=== PATIENT | male | born 1970 | race African-American/Black ===

== ENCOUNTER 2020-08-02 11:20 | Inpatient (IN) | payer OTHER ==
[2020-08-02] MEDS ORDERED: Morphine 4 MG/ML VIAL ONE (12:00)
[2020-08-02] MEDS ORDERED: Ondansetron PF 4 MG/2 ML Vial ONE (12:00)
[2020-08-02 12:33] LABS: #Monocytes 0.8 thou/uL (0.11-0.59); #Neutrophils 6.9 thou/uL (1.40-6.50); %Basophils 0.3 % (0.0-1.0); %Eosinophils 0.1 % (0.0-10.0); %Lymphocytes 20.2 % (21.0-51.0); %Monocytes 8.6 % (0.0-10.0); %Neutrophils 70.8 % (42.0-75.0); Hemoglobin 14.9 g/dL (14.0-18.0); Mean Corpuscular HGB CONC 34.3 g/dL (32.0-36.0); Mean Corpuscular Hemoglobin 32.6 pg (27.0-31.0); Mean Corpuscular Volume 95.2 fL (78.0-98.0); Mean Platelet Volume 8.2 fL (7.4-10.4); Platelet Count 144 thou/uL (130-400); RBC Distribution Width 12.2 % (11.5-14.5); Red Blood Cell (RBC) Count 4.56 mill/uL (4.70-6.10); White Blood Cell (WBC) Count 9.8 thou/uL (4.8-10.8)
--- NOTE | 2020-08-02 13:00 | CT ---
CT ABDOMEN WITH CONTRAST CT PELVIS WITH CONTRAST: DATE: 08/02/2020 HISTORY: 50-year-old male with abdominal pain. "Large, very tender periumbilical hernia" At 12:52 PM 08/02/2020, Dr. Montesinso reported the findings that constitute a surgical emergency, to Dr. Alvin Gore by telephone. COMPARISON: None TECHNIQUE: IV injection of iodinated contrast media: administered. Oral contrast media:Not administered FINDINGS: Through a 2.5 cm defect of the ventral abdominal wall at midline, representing diastases between the left and right rectus abdominis muscles just superior to the umbilicus, an approximately 4.5 x 2.5 x 3.5 cm loop of small intestine has herniated into the subcutaneous fat. The hernia sac is approxima tely 7 x 3 x 4.5 cm. There is fat stranding representing edema within the hernia sac, especially around the thickened of herniated fluid-filled bowel loop. There are multiple dilated loops of jejunum with caliber of approximately 3.7 cm, with air-fluid leve ls, in the upper and mid abdominal cavity. Loops of ileum are collapsed. No major pathology identified involving liver, abdominal aorta, bilateral kidneys, adrenals, spleen, urinary bladder. Lung bases are grossly clear. No pleural effusion, pneumoperitoneum, or ascites. Multiple small calculi along right spermatic cord. IMPRESSION: ventral paraumbilical hernia with strangulation and small bowel obstruction.
[2020-08-02 13:03] LABS: ALT (SGPT) 70 U/L (8-55); AST (SGOT) 56 U/L (5-34); Albumin 4.4 g/dL (3.5-5.0); Alkaline Phosphatase 68 U/L (40-110); Anion Gap 17 mmol/L (10-20); BUN (Urea Nitrogen) 8 mg/dL (8.9-20.6); Calc. Creatinine Clearance 0 mL/min (70-130); Calcium 9.5 mg/dL (7.8-10.44); Carbon Dioxide 21 mmol/L (22-29); Chloride 101 mmol/L (98-107); Estimated GFR-MDRD Greater than 90; Globulin 3.2 g/dL (2.4-3.5); Glucose 112 mg/dL (70-105); Lipase 14 U/L (8-78); Potassium 4.5 mmol/L (3.5-5.1); Protein, Total 7.6 g/dL (6.0-8.3); Sodium 134 mmol/L (136-145)
[2020-08-02] MEDS ORDERED: PROPOFOL 200 MG/20 ML VIAL ONE (13:05)
[2020-08-02] MEDS ORDERED: Glycopyrrolate 0.2 MG/ML 5 ML SYRINGE ONE (13:05)
[2020-08-02] MEDS ORDERED: Succinylcholine 200 MG/10 ml SYRINGE FS ONE (13:05)
[2020-08-02] MEDS ORDERED: Lidocaine 1% PF 5 ML VIAL ONE (13:05)
[2020-08-02] MEDS ORDERED: Rocuronium Bromide 10 MG/ML (10ML VIAL) ONE (13:05)
[2020-08-02] MEDS ORDERED: Piperacillin/Tazobactam 4.5 GM VIAL ONE (13:25)
--- NOTE | 2020-08-02 14:35 | HP ---
HISTORY OF PRESENT ILLNESS: This is a 50-year-old man, an inmate of a correctional facility, who was brought to the emergency department today. The patient gives a history of acute onset of periumbilical abdominal pain, which was associated with nonreducible bulge and mass. He rated his pain at maximum intensity of 10/10 associated with multiple episodes of nausea and bilious emesis. The pain has gotten progressively worse. The patient reports having chronic ventral hernia, which initially was reducible, but he was not able to reduce this since yesterday. Last bowel movement was yesterday. He last passed flatus also yesterday. Currently, he rates his pain as 7/10, having received several courses of intravenous analgesia. PAST MEDICAL HISTORY: Significant for peptic ulcerative disease with perforation and other pertinent medical history includes chronic ventral hernia, essential hypertension, and chronic depression. PAST SURGICAL HISTORY: Pertinent for exploratory laparotomy and repair of a perforated peptic ulcer as well as a childhood appendectomy. SOCIAL HISTORY: He is an inmate of a correctional facility [facility]. Denies any cigarette smoking, ethanol, or illicit drug abuse. PREHOSPITALIZATION MEDICATIONS: Include: 1. Lisinopril 10 mg p.o. daily. 2. Effexor 150 mg p.o. daily. ALLERGIES: THE PATIENT DENIES ANY KNOWN DRUG ALLERGIES. REVIEW OF SYSTEMS: Ten-point review of systems essentially unremarkable except as stated in past medical history and chief complaint. PHYSICAL EXAMINATION: GENERAL: This reveals a 50-year-old normally developed man, who is otherwise coherent, interactive, and appears stated age. The patient is alert and oriented x3, appears to be in moderate acute distress secondary to severe abdominal pain. VITAL SIGNS: Include blood pressure 138/86, pulse 80, respiratory rate is 18, temperature 98.9 degrees Fahrenheit, oxygen saturation is 100% on room air. HEENT: Reveals normocephalic and atraumatic. Pupils are equal, round, reactive to light and accommodation. HEART: Reveals regular rate and rhythm. No murmurs or gallops auscultated. LUNGS: Clear to auscultation bilaterally. Breathing, regular and nonlabored. ABDOMEN: Soft and nondistended. He has exquisite tenderness to palpation of the abdomen. There is a nonreducible bulge, which is exquisitely tender to even slight touch. This bulging mass is superolateral to the umbilicus. Liver and spleen are otherwise nonpalpable below costal margin. He has a healed supraumbilical midline incision consistent with prior history of laparotomy for the perforated ulcer. Healed Todd-Rajat incision is also noted consistent with prior history of childhood appendectomy. NEUROLOGIC: Reveals no focal deficits present. LABORATORY FINDINGS: Today include a CBC with 9800 white blood cells, hemoglobin and hematocrit 14.9 and 43.4 respectively, platelet count is 144,000. Metabolic profile; sodium 134, potassium 4.5, chloride is 101, bicarb is 21, BUN is 8, creatinine 0.88, glucose 112, lactic acid 1.0, total bilirubin 1.0, AST and ALT marginally elevated at 56 and 70 respectively. Serum lipase is normal at 14. I have personally reviewed CT scan of the abdomen and pelvis, which is remarkable for 4.5 x 2.5 x 3.5 cm loop of small bowel, which is herniated through 2.5 cm defect and this is contained in a 7.3 x 4.5 cm hernia sac in the subcutaneous position. Multiple loops of jejunum are dilated proximal to this incarcerated hernia. The remainder of the ileum distal to this is decompressed. No pneumatosis intestinalis or pneumoperitoneum is noted. IMPRESSION: 1. Acute incarcerated ventral hernia. 2. Acute small-bowel obstruction secondary to #1. 3. History of essential hypertension. 4. History of chronic depression. PLAN: 1. Exploratory laparotomy and repair of ventral incisional hernia, likely with mesh so long as there is no need for bowel resection. 2. Above findings and recommendations have been discussed with the patient. I have advised him of the risks and benefits of the proposed surgery to include, but not limited to bleeding, infection, injury to bowel or surrounding structures. Additional risks include recurrence of the ventral hernia. 3. The patient indicates understanding of the information I provided him today in the presence of his nurse. 4. I have answered all his questions. The patient is going to consent for this admission and surgical intervention. Job ID: [id number]
[2020-08-02 15:01] LABS: SARS-CoV-2 NAA Rapid Test Not Detected (NotDetected)
[2020-08-02] MEDS ORDERED: Iopamidol-370 76% 500 ML 1 ML ONE (15:13)
[2020-08-02] MEDS ORDERED: Fentanyl 250 MCG/5 ML VIAL ONE (15:18)
[2020-08-02] MEDS ORDERED: Promethazine HCl 25 MG/ML VIAL IM PRN (16:56)
[2020-08-02] MEDS ORDERED: Ondansetron HCl/PF 4 MG/2 ML Vial IVP PRN (16:56)
[2020-08-02] MEDS ORDERED: Promethazine HCl 25 MG/ML VIAL SLOW IVP PRN (16:56)
[2020-08-02] MEDS ORDERED: Meperidine HCl/PF 25 MG/ML VIAL ONE (17:34)
[2020-08-02] MEDS ORDERED: traMADol HCl 50 MG TAB PO PRN (17:37)
[2020-08-02] MEDS ORDERED: Ondansetron ODT 4 MG TAB PO PRN (17:37)
[2020-08-02] MEDS ORDERED: Dextrose 50% Abboject 50 ML SYRINGE SLOW IVP PRN (17:37)
[2020-08-02] MEDS ORDERED: Dextrose 5% in Water 1,000 ML IV PRN (17:37)
[2020-08-02] MEDS ORDERED: Fentanyl 100 MCG/2 ML VIAL ONE ×3 (17:44→18:38)
[2020-08-02] MEDS ORDERED: Sodium Chloride For Inhalation 0.9% 3 ML NEB ONE (19:14)
[2020-08-02] MEDS: Sodium Chloride 0.9% 1,000 ML IV SCH ×2 (19:51→20:27)
[2020-08-02] MEDS: Acetaminophen 500 MG TAB PO SCH (19:51)
[2020-08-02] MEDS: Fentanyl 100 MCG/2 ML VIAL SLOW IVP SCH ×2 (19:51→20:27)
[2020-08-02 20:57] LABS: INR-International Normal Ratio 1.1; PTT 28.7 sec (22.9-36.1); Prothrombin Time 14.9 sec (12.0-14.7)
[2020-08-02] MEDS: Ibuprofen 600 MG TAB PO SCH (21:32)
--- NOTE | 2020-08-02 23:26 | OP ---
DATE OF PROCEDURE: 08/02/2020 PREOPERATIVE DIAGNOSES: 1. Acute incarcerated ventral hernia. 2. Acute small-bowel obstruction secondary to #1. OPERATIONS PERFORMED: Exploratory laparotomy and repair of ventral incisional hernia. ANESTHESIA: General endotracheal. ESTIMATED BLOOD LOSS: 20 mL. FLUIDS GIVEN: 1500 mL crystalloids. COUNTS: Sponge and instrument counts were verified as correct x2. COMPLICATIONS: None apparent at the time of operation. INDICATIONS FOR OPERATION: This is a 50-year-old man who presented with acute onset of severe abdominal pain associated with nonreducible periumbilical bulge. Clinical radiographic examination was consistent with acute incarcerated ventral hernia, for which the patient was brought to the operating room for laparotomy. Findings are consistent with a 7 x 6 cm ventral incisional hernia with incarcerated small bowel. The bowel upon release was viable. DESCRIPTION OF PROCEDURE: Informed consent was obtained from the patient, was brought to the operating room and placed in supine position. Following general anesthesia, a Kumar catheter was inserted and placed to bedside drain. The abdomen was sterilely prepped and draped in usual fashion. A midline incision was made using 10 scalpel. Incision was carried through subcutaneous tissues using cautery. Care was taken to avoid injuries to underlying visceral contents above the fascia, but in a subcutaneous position. The hernia sac was encountered and dissected circumferentially down to [facility] fascia. The [facility] ge[facility] fascia was opened inferior to this hernia using cautery. Peritoneum was exposed, grasped x2 with hemostats. Peritoneal cavity was sharply entered using Metzenbaum scissors. I then was able to reduce the hernia contents from within the peritoneal cavity. The incarcerated small bowel was inspected and was viable. Necrotic omental fat was divided between clamps and ligated with 2-0 silk. The hernia sac was circumferentially excised off down to viable [facility] george fascia. This was passed off the operative field for formal transmission to Pathology. Finding no other pathology, small bowel returned to normal anatomic location. Omentum was drawn over the viscera. Fascia was then approximated in the midline using a running stitch of #1 single stranded PDS. Subcutaneous tissues irrigated with saline and hemostasis using cautery. Deep subcutaneous tissues were approximated using interrupted sutures of 3-0 Vicryl. The skin incision was then closed using a running stitch of 3-0 Monocryl suture in subcuticular fashion. Dermabond was applied over incisional closure. The patient tolerated the operation without any apparent complication and was returned to recovery room in satisfactory condition. Job ID: [id number]
[2020-08-03] MEDS: Acetaminophen 500 MG TAB PO SCH ×4 (00:02→18:14)
[2020-08-03 01:11] VITALS: BMI 28.4
[2020-08-03] MEDS: Sodium Chloride 0.9% 1,000 ML IV SCH ×3 (02:56→18:14)
[2020-08-03] MEDS: Ibuprofen 600 MG TAB PO SCH ×3 (05:51→22:11)
[2020-08-03 07:04] LABS: #Lymphocytes 1.5 thou/uL (1.20-3.40); #Neutrophils 6.5 thou/uL (1.40-6.50); %Basophils 0.2 % (0.0-1.0); %Eosinophils 0.1 % (0.0-10.0); %Lymphocytes 16.6 % (21.0-51.0); Hemoglobin 13.4 g/dL (14.0-18.0); Mean Corpuscular Hemoglobin 32.7 pg (27.0-31.0); Mean Corpuscular Volume 96.1 fL (78.0-98.0); Mean Platelet Volume 9.2 fL (7.4-10.4); Platelet Count 103 thou/uL (130-400); Platelet Morphology Comment Appears Decreased; RBC Distribution Width 12.1 % (11.5-14.5)
[2020-08-03 07:07] LABS: Phosphorus 2.4 mg/dL (2.3-4.7)
[2020-08-03 07:10] LABS: Anion Gap 14 mmol/L (10-20); BUN (Urea Nitrogen) 9 mg/dL (8.9-20.6); Calc. Creatinine Clearance 135 mL/min (70-130); Calcium 8.4 mg/dL (7.8-10.44); Carbon Dioxide 24 mmol/L (22-29); Chloride 103 mmol/L (98-107); Estimated GFR-MDRD Greater than 90; Glucose 108 mg/dL (70-105); Magnesium 1.5 mg/dL (1.6-2.6); Potassium 4.1 mmol/L (3.5-5.1); Sodium 137 mmol/L (136-145)
[2020-08-03] MEDS ORDERED: Magnesium Sulfate 4 GM in Sodium Chloride 0.9% 250 ML 250 ML IVPB SCH (09:00)
[2020-08-03] MEDS ORDERED: FLU VACC QS2020-21(6MOS UP)/PF 60 MCG/0.5 ML SYRINGE IM ONE (09:00)
[2020-08-03] MEDS: Lisinopril 10 MG TAB PO SCH (11:05)
[2020-08-03] MEDS: Venlafaxine HCl XR 150 MG CAP PO SCH (22:11)
[2020-08-03] MEDS: traMADol HCl 50 MG TAB PO PRN (22:12)
[2020-08-04] MEDS: Acetaminophen 500 MG TAB PO SCH ×4 (00:19→20:26)
[2020-08-04] MEDS: Sodium Chloride 0.9% 1,000 ML IV SCH ×3 (01:21→20:30)
[2020-08-04] MEDS ORDERED: Famotidine 40 MG/5 ML Oral Suspension PO SCH (03:30)
--- NOTE | 2020-08-04 05:32 | PRG ---
DATE OF SERVICE: 08/03/2020 SUBJECTIVE: The patient was seen this evening during rounds. He was lying in bed, resting comfortably and asleep with no signs of acute distress. Nursing reported no acute events. OBJECTIVE: VITAL SIGNS: Temperature 99.0, pulse 77, respirations 19, oxygen 94% on room air, blood pressure 146/89. GENERAL: Well-appearing middle-aged male, lying in bed with no signs of acute distress, resting comfortably and asleep with no signs of acute distress. PULMONARY: Equal chest rise and fall. No signs of acute respiratory distress. ASSESSMENT: 1. Postoperative day #1, status post exploratory laparotomy repair of ventral hernia. 2. History of hypertension, peptic ulcer disease, and depression. PLAN: 1. Continue current diet and pain regimen. 2. Continue physical and occupational therapy. 3. Continue IV fluids. 4. We will re-evaluate for return of bowel function tomorrow and restart diet as indicated at that time. Job ID: [id number]
[2020-08-04 05:56] LABS: #Lymphocytes 1.1 thou/uL (1.20-3.40); #Monocytes 0.8 thou/uL (0.11-0.59); #Neutrophils 6.8 thou/uL (1.40-6.50); %Basophils 0.1 % (0.0-1.0); %Eosinophils 0.5 % (0.0-10.0); %Lymphocytes 12.5 % (21.0-51.0); %Monocytes 9.1 % (0.0-10.0); %Neutrophils 77.9 % (42.0-75.0); Hemoglobin 13.7 g/dL (14.0-18.0); Mean Corpuscular Hemoglobin 31.9 pg (27.0-31.0); Mean Corpuscular Volume 96.5 fL (78.0-98.0); Mean Platelet Volume 8.1 fL (7.4-10.4); Platelet Count 137 thou/uL (130-400); RBC Distribution Width 12.1 % (11.5-14.5); Red Blood Cell (RBC) Count 4.29 mill/uL (4.70-6.10); White Blood Cell (WBC) Count 8.7 thou/uL (4.8-10.8)
[2020-08-04] MEDS: Ondansetron PF 4 MG/2 ML Vial IVP PRN (06:09)
[2020-08-04] MEDS: Ibuprofen 600 MG TAB PO SCH ×3 (06:10→20:28)
[2020-08-04 06:11] LABS: Anion Gap 12 mmol/L (10-20); BUN (Urea Nitrogen) 10 mg/dL (8.9-20.6); Calc. Creatinine Clearance 143 mL/min (70-130); Calcium 8.7 mg/dL (7.8-10.44); Carbon Dioxide 24 mmol/L (22-29); Chloride 103 mmol/L (98-107); Estimated GFR-MDRD Greater than 90; Glucose 101 mg/dL (70-105); Magnesium 2.2 mg/dL (1.6-2.6); Phosphorus 2.4 mg/dL (2.3-4.7); Potassium 4.2 mmol/L (3.5-5.1); Sodium 135 mmol/L (136-145)
[2020-08-04] MEDS: Lisinopril 10 MG TAB PO SCH (09:09)
[2020-08-04] MEDS: Enoxaparin Sodium 40 MG/0.4 ML SYRINGE SC SCH (09:09)
[2020-08-04] MEDS: Senokot 8.6 MG TAB PO SCH ×2 (09:10→20:27)
[2020-08-04] MEDS: Famotidine 20 MG TAB PO SCH ×2 (09:11→20:26)
[2020-08-04] MEDS: Polyethylene Glycol 3350 17 GM Packet PO SCH (11:49)
[2020-08-04] MEDS ORDERED: Chloraseptic Spray 180 ml Bottle PO SCH (13:15)
[2020-08-04] MEDS ORDERED: Benzocaine 20% Spray 60 ML CAN PO SCH (13:15)
--- NOTE | 2020-08-04 14:30 | RAD ---
EXAM: Abdomen one view: HISTORY: NG tube placement position evaluation COMPARISON: None FINDINGS: NG tube extends well in the stomach. Some dilated large and small bowel, probably ileus No free intraperitoneal air or extraluminal gas. No overt calculus. IMPRESSION: NG tube in satisfactory location. Some residual large and small bowel dilatation.
[2020-08-04] MEDS: Venlafaxine HCl XR 150 MG CAP PO SCH ×2 (20:30→20:33)
[2020-08-05] MEDS: Acetaminophen 500 MG TAB PO SCH ×6 (00:32→23:34)
--- NOTE | 2020-08-05 04:57 | PRG ---
DATE OF SERVICE: 08/04/2020 SUBJECTIVE: The patient was seen this evening during rounds. He was awake and alert, sitting up in bed with no signs of acute distress. NG tube is in place with dark output. The patient reports abdominal pain has improved. States he has not been ambulating in the hallway, but is amenable this morning. Nursing reported that the patient was refusing medications earlier. OBJECTIVE: VITAL SIGNS: Temperature 98.4, pulse 92, respirations 16, oxygen saturation 94% on room air, and blood pressure 161/96. GENERAL: Well-appearing, middle-aged male, sitting up in bed with no signs of acute distress. PULMONARY: Equal chest rise and fall. No signs of acute respiratory distress. ABDOMEN: Soft, mildly tender to palpation, and mildly distended. ASSESSMENT: 1. Postop day 2, status post exploratory laparotomy repair of ventral incisional hernia. 2. Small bowel obstruction. 3. Ventral hernia, incarcerated. 4. Ileus, postop. 5. History of hypertension, peptic ulcer disease, and depression. PLAN: Continue current n.p.o. status and pain regimen. Continue normal saline at 120 an hour. The patient to be walking in the hallways as much as possible. NG tube to suction. Monitor for return of bowel function. Job ID: [id number]
[2020-08-05] MEDS: Ibuprofen 600 MG TAB PO SCH ×3 (05:06→21:09)
[2020-08-05 05:34] LABS: #Eosinphils 0.1 thou/uL (0.0-0.7); #Lymphocytes 1.8 thou/uL (1.20-3.40); #Neutrophils 5.9 thou/uL (1.40-6.50); %Basophils 0.5 % (0.0-1.0); %Eosinophils 0.7 % (0.0-10.0); %Lymphocytes 20.3 % (21.0-51.0); %Monocytes 11.5 % (0.0-10.0); Hemoglobin 11.5 g/dL (14.0-18.0); Mean Corpuscular HGB CONC 33.4 g/dL (32.0-36.0); Mean Corpuscular Hemoglobin 31.7 pg (27.0-31.0); Mean Platelet Volume 7.8 fL (7.4-10.4); Platelet Count 129 thou/uL (130-400); RBC Distribution Width 11.9 % (11.5-14.5); Red Blood Cell (RBC) Count 3.62 mill/uL (4.70-6.10); White Blood Cell (WBC) Count 8.9 thou/uL (4.8-10.8)
[2020-08-05 06:10] LABS: Anion Gap 11 mmol/L (10-20); BUN (Urea Nitrogen) 11 mg/dL (8.9-20.6); Calc. Creatinine Clearance 155 mL/min (70-130); Calcium 8.3 mg/dL (7.8-10.44); Carbon Dioxide 24 mmol/L (22-29); Chloride 106 mmol/L (98-107); Estimated GFR-MDRD Greater than 90; Glucose 101 mg/dL (70-105); Magnesium 1.9 mg/dL (1.6-2.6); Phosphorus 1.4 mg/dL (2.3-4.7); Potassium 3.8 mmol/L (3.5-5.1); Sodium 137 mmol/L (136-145)
[2020-08-05] MEDS ORDERED: Magnesium 2 GM/50 ML 2 GM in Premix Bag 1 BAG IVPB SCH (06:15)
[2020-08-05] MEDS ORDERED: Sodium Phosphate 30 MMOL in Sodium Chloride 0.9% 250 ML 250 ML IVPB SCH (06:15)
[2020-08-05] MEDS: Sodium Chloride 0.9% 1,000 ML IV SCH ×3 (06:57→23:40)
[2020-08-05] MEDS ORDERED: Potassium Phosphate 30 MMOL in Sodium Chloride 0.9% 250 ML 250 ML IVPB SCH (09:00)
[2020-08-05] MEDS: Senokot 8.6 MG TAB PO SCH ×2 (09:41→21:09)
[2020-08-05] MEDS: Famotidine 20 MG TAB PO SCH ×2 (09:41→21:09)
[2020-08-05] MEDS: Polyethylene Glycol 3350 17 GM Packet PO SCH (09:41)
[2020-08-05] MEDS: Cyclobenzaprine 10 MG TAB PO PRN ×2 (09:41→17:27)
[2020-08-05] MEDS: traMADol HCl 50 MG TAB PO PRN (09:42)
[2020-08-05] MEDS: Enoxaparin Sodium 40 MG/0.4 ML SYRINGE SC SCH (09:45)
[2020-08-05] MEDS: Lisinopril 10 MG TAB PO SCH (09:53)
--- NOTE | 2020-08-05 14:27 | PRG ---
DATE OF SERVICE: 08/05/2020 SUBJECTIVE: Mr. Pittman is a 50-year-old male, who is postop day 3 following repair of a ventral incisional hernia. The patient was doing well during morning rounds. He just finished working with PT and had walked up and down the halls. He denies any bowel movement or passing gas, but says his pain is well controlled. OBJECTIVE: VITAL SIGNS: Temperature 98.4, pulse 83, respirations 20, O2 saturation 96 on room air, blood pressure 146/89. GENERAL: Well-appearing middle-aged male, lying in bed. No signs of distress. HEENT: Unremarkable. RESPIRATIONS: Equal chest rise and fall. No signs of acute respiratory distress. CARDIOLOGY: Regular rate and rhythm. ABDOMEN: Soft, mildly tender. Mildly distended. MUSCULOSKELETAL: Moving all extremities well. ASSESSMENT: 1. Postop day 3, status post exploratory laparotomy, repair of ventral incisional hernia. 2. Small bowel obstruction. 3. Ventral hernia, incarcerated. 4. Ileus postop. 5. History of hypertension, peptic ulcer disease, and depression. PLAN: 1. Continue current n.p.o. status and pain regimen. 2. Continue normal saline at 120 an hour. 3. Replace electrolytes. 4. Encourage patient to ambulate in the hallways as much as possible. 5. May consider removing NG tube tomorrow if patient regains bowel function. Dr. Sanchez saw and evaluated this patient during morning rounds. Job ID: [id number]
[2020-08-05] MEDS: Venlafaxine HCl XR 150 MG CAP PO SCH (21:08)
--- NOTE | 2020-08-06 01:59 | PRG ---
DATE OF SERVICE: 08/05/2020 SUBJECTIVE: The patient was seen this evening during rounds. He was sitting up in bed. NG tube in place. He reported his pain is well controlled. He states he only walked in the hallway once today. He has not had return of bowel function. No gas or bowel movement. OBJECTIVE: VITAL SIGNS: Temperature 98.4, pulse 85, respirations 16, oxygen saturation is 97% on room air, blood pressure 152/97. GENERAL: Well-appearing middle-aged male, sitting up in bed with no signs of acute distress. PULMONARY: Equal chest rise and fall. No signs of acute respiratory distress. ABDOMEN: Soft, mildly distended to palpation and nontender. ASSESSMENT: 1. Postop day 3 status post ex lap repair of ventral hernia due to incarcerated ventral hernia and small bowel obstruction. 2. History of hypertension, peptic ulcer and depression. PLAN: Continue current n.p.o. with normal saline. Continue NG tube to suction. Continue encouraging ambulating and watching for return of bowel function. Job ID: [id number]
[2020-08-06] MEDS: Acetaminophen 500 MG TAB PO SCH ×4 (05:10→23:12)
[2020-08-06] MEDS: Ibuprofen 600 MG TAB PO SCH ×3 (05:10→21:14)
[2020-08-06] MEDS: Sodium Chloride 0.9% 1,000 ML IV SCH ×3 (05:13→22:28)
[2020-08-06 05:53] LABS: #Eosinphils 0.1 thou/uL (0.0-0.7); #Lymphocytes 1.8 thou/uL (1.20-3.40); #Monocytes 1.2 thou/uL (0.11-0.59); #Neutrophils 6.8 thou/uL (1.40-6.50); %Basophils 0.5 % (0.0-1.0); %Eosinophils 1.4 % (0.0-10.0); %Lymphocytes 17.8 % (21.0-51.0); %Monocytes 11.6 % (0.0-10.0); %Neutrophils 68.7 % (42.0-75.0); Hemoglobin 11.4 g/dL (14.0-18.0); Mean Corpuscular HGB CONC 34.2 g/dL (32.0-36.0); Mean Corpuscular Volume 93.7 fL (78.0-98.0); Mean Platelet Volume 7.8 fL (7.4-10.4); Platelet Count 136 thou/uL (130-400); RBC Distribution Width 11.6 % (11.5-14.5); Red Blood Cell (RBC) Count 3.55 mill/uL (4.70-6.10); White Blood Cell (WBC) Count 9.9 thou/uL (4.8-10.8)
[2020-08-06 06:45] LABS: Anion Gap 14 mmol/L (10-20); BUN (Urea Nitrogen) 12 mg/dL (8.9-20.6); Calc. Creatinine Clearance 162 mL/min (70-130); Calcium 8.4 mg/dL (7.8-10.44); Carbon Dioxide 23 mmol/L (22-29); Chloride 106 mmol/L (98-107); Estimated GFR-MDRD Greater than 90; Glucose 80 mg/dL (70-105); Phosphorus 2.9 mg/dL (2.3-4.7); Potassium 3.9 mmol/L (3.5-5.1); Sodium 139 mmol/L (136-145)
[2020-08-06] MEDS: Enoxaparin Sodium 40 MG/0.4 ML SYRINGE SC SCH (09:26)
[2020-08-06] MEDS: Famotidine 20 MG TAB PO SCH ×2 (09:27→21:14)
[2020-08-06] MEDS: Senokot 8.6 MG TAB PO SCH ×2 (09:27→21:13)
[2020-08-06] MEDS: Lisinopril 10 MG TAB PO SCH (09:27)
[2020-08-06] MEDS: Polyethylene Glycol 3350 17 GM Packet PO SCH (09:31)
--- NOTE | 2020-08-06 14:47 | PRG ---
DATE OF SERVICE: 08/06/2020 SUBJECTIVE: Mr. Pittman is a 50-year-old male, who is postop day 4 following repair of ventral incisional hernia. The patient was doing well on morning rounds and resting comfortably in bed. He had just finished working with PT. The patient reports he has passed gas, but has not had a bowel movement. He says his pain is well controlled. OBJECTIVE: VITAL SIGNS: Temperature 98.4, pulse 89, respirations 14, O2 saturation 95% on room air, and blood pressure 155/96. GENERAL: Well-appearing middle-age man, lying in bed. No signs of distress. HEENT: Unremarkable. RESPIRATIONS: Equal chest rise and fall. No signs of respiratory distress. CARDIOLOGY: Regular rate and rhythm. ABDOMEN: Soft. Mildly tender. Nondistended. MUSCULOSKELETAL: Moving all extremities well. ASSESSMENT: 1. Postop day 4 status post exploratory laparotomy, repair of ventral incisional hernia. 2. Small-bowel obstruction. 3. Ventral hernia, incarcerated. 4. Ileus, postop, improving. 5. History of hypertension, peptic ulcer disease, and depression. PLAN: 1. NG tube was removed by Dr. Sanchez during morning rounds. 2. Advance the patient to clear liquid diet. 3. Replace electrolytes. 4. Continue working with PT and OT. Encourage the patient to ambulate often. Continue supportive care. 5. The patient is likely to be ready for discharge tomorrow. Dr. Sanchez saw and examined the patient on morning rounds. Job ID: [id number] MTDD
[2020-08-06] MEDS: Venlafaxine HCl XR 150 MG CAP PO SCH (21:14)
[2020-08-06] MEDS: traMADol HCl 50 MG TAB PO PRN (21:19)
[2020-08-06] MEDS: Ondansetron PF 4 MG/2 ML Vial IVP PRN (23:19)
--- NOTE | 2020-08-07 00:57 | PRG ---
DATE OF SERVICE: SUBJECTIVE: This is a 50-year-old gentleman, status post surgical intervention on an incarcerated ventral hernia. Patient had hospital stay complicated by postop ileus. Patient did report flatus earlier today and was started on a clear liquid diet. Upon my evaluation this evening, the patient does report abdominal pain. He does report continued flatus. Denies nausea or vomiting. Nursing at bedside vocalized no concerns. Chart has been reviewed. Vital signs are stable from previous. Physical exam is grossly unchanged from previous documentation. Continue care as ordered. We will closely monitor for nausea, vomiting, or worsening abdominal pain or distention. Job ID: [id number]
[2020-08-07] MEDS: Cyclobenzaprine 10 MG TAB PO PRN ×2 (03:29→18:07)
[2020-08-07] MEDS: traMADol HCl 50 MG TAB PO PRN ×3 (03:29→18:08)
[2020-08-07] MEDS: Sodium Chloride 0.9% 1,000 ML IV SCH ×3 (05:17→23:54)
[2020-08-07] MEDS: Acetaminophen 500 MG TAB PO SCH ×4 (05:24→23:53)
[2020-08-07] MEDS: Ibuprofen 600 MG TAB PO SCH ×3 (05:25→22:18)
[2020-08-07] MEDS: Famotidine 20 MG TAB PO SCH ×2 (09:25→20:28)
[2020-08-07] MEDS: Lisinopril 10 MG TAB PO SCH (09:25)
[2020-08-07] MEDS: Enoxaparin Sodium 40 MG/0.4 ML SYRINGE SC SCH (09:25)
[2020-08-07] MEDS: Polyethylene Glycol 3350 17 GM Packet PO SCH (09:26)
[2020-08-07] MEDS: Senokot 8.6 MG TAB PO SCH ×2 (09:36→20:28)
--- NOTE | 2020-08-07 13:45 | RAD ---
SUPINE ABDOMEN: 08/07/20 HISTORY: Postop ileus. COMPARISON: 08/04/20. Prominent gaseous dilatation of the colon. There is scattered small bowel gas; however, the small bow el distention is less pronounced than on the prior study. No mass effect. IMPRESSION: Gaseous distention of the colon. Gas filled loops of small bowel again noted but less pronounced than on the prior exam. POS: AH
--- NOTE | 2020-08-07 14:29 | PRG ---
DATE OF SERVICE: 08/07/2020 SUBJECTIVE: Mr. Pittman is a 50-year-old inmate of a correctional facility, who is postoperative day #5, status post exploratory laparotomy, repair of incarcerated ventral incisional hernia. The patient is awake and alert today. He reports adequate pain control. He is tolerating clear liquid diet. Urinary output is adequate for this patient's age and weight. He is not having any bowel movement, but admits to passing flatus. OBJECTIVE: VITAL SIGNS: Currently include blood pressure 159/95, pulse is 70, respiratory rate is 16, temperature 97.5 degrees Fahrenheit, and oxygen saturation 96% on room air. HEENT: Reveals normocephalic and atraumatic. Pupils are equal, round, reactive to light and accommodation. HEART: Reveals regular rate and rhythm. No murmurs or gallops auscultated. LUNGS: Clear to auscultation bilaterally. Breathing, regular and nonlabored. ABDOMEN: Soft and distended with gas. Incision is intact, clean, and dry. He has no peritoneal signs on examination. DIAGNOSTIC STUDIES: Abdominal x-ray today reveals distended colon, not as distended small-bowel loops. IMPRESSION: 1. Postop day #5, status post exploratory laparotomy and repair of incarcerated ventral incisional hernia. 2. Adynamic ileus. PLAN: 1. Increase activity. 2. Advance diet upon return of bowel function. Above findings and plan discussed with the patient who indicates understanding of information provided. I have answered his questions. Job ID: [id number]
[2020-08-07] MEDS: Venlafaxine HCl XR 150 MG CAP PO SCH (20:29)
[2020-08-08] MEDS: Ibuprofen 600 MG TAB PO SCH ×3 (05:15→22:20)
[2020-08-08] MEDS: Acetaminophen 500 MG TAB PO SCH ×4 (05:15→23:29)
[2020-08-08] MEDS: Sodium Chloride 0.9% 1,000 ML IV SCH ×3 (07:38→23:24)
[2020-08-08] MEDS: Enoxaparin Sodium 40 MG/0.4 ML SYRINGE SC SCH (10:35)
[2020-08-08] MEDS: Famotidine 20 MG TAB PO SCH ×2 (10:35→20:25)
[2020-08-08] MEDS: Polyethylene Glycol 3350 17 GM Packet PO SCH (10:36)
[2020-08-08] MEDS: Senokot 8.6 MG TAB PO SCH ×2 (10:36→20:25)
[2020-08-08] MEDS: Lisinopril 20 MG TAB PO SCH (10:36)
--- NOTE | 2020-08-08 19:44 | PRG ---
DATE OF SERVICE: 08/08/2020 SUBJECTIVE: The patient is currently on the surgical floor. He is postoperative day 6, status post exploratory laparotomy and repair of incarcerated ventral incisional hernia. The patient has developed postoperative ileus and today was started on neostigmine. He fortunately has not had any vomiting. He is continued to ambulate, and he states that his pain is controlled. OBJECTIVE: VITAL SIGNS: Temperature is 98.6, heart rate 81, respirations 18, oxygen saturation 97% on room air, blood pressure 152/85. GENERAL: The patient is resting comfortably in bed. He is awake, alert, conversant, and appropriate. Brilliant Coma Scale is 15. HEENT: Unremarkable. LUNGS: Clear to auscultation bilaterally. HEART: Regular rate and rhythm. ABDOMEN: Soft and nondistended. His incision is clean, dry, and intact. He has no peritoneal signs on exam. He does have tympanitic sounds to percussion. EXTREMITIES: Neurovascularly intact. LABORATORY DATA: There are no labs or radiographs to review this morning. ASSESSMENT: 1. Status post exploratory laparotomy and repair of incarcerated ventral incisional hernia, postoperative day 6. 2. Adynamic ileus. PLAN: Plan will be to encourage out of bed, ambulation. Again, we will start neostigmine subcutaneous until return of bowel function. The patient was examined this morning with Dr. Sanchez. Job ID: [id number]
[2020-08-08] MEDS: Venlafaxine HCl XR 150 MG CAP PO SCH (20:25)
[2020-08-09] MEDS: Acetaminophen 500 MG TAB PO SCH ×3 (04:57→17:34)
[2020-08-09] MEDS: Ibuprofen 600 MG TAB PO SCH ×3 (05:59→20:40)
[2020-08-09] MEDS: Sodium Chloride 0.9% 1,000 ML IV SCH ×2 (07:52→16:22)
[2020-08-09] MEDS ORDERED: Magnesium Citrate 300 ML BOT PO SCH (08:00)
[2020-08-09] MEDS: Famotidine 20 MG TAB PO SCH ×2 (09:12→20:24)
[2020-08-09] MEDS: Senokot 8.6 MG TAB PO SCH ×2 (09:12→20:24)
[2020-08-09] MEDS: Polyethylene Glycol 3350 17 GM Packet PO SCH (09:12)
[2020-08-09] MEDS: Lisinopril 20 MG TAB PO SCH (09:12)
[2020-08-09] MEDS: Enoxaparin Sodium 40 MG/0.4 ML SYRINGE SC SCH (09:12)
--- NOTE | 2020-08-09 19:26 | PRG ---
DATE OF SERVICE: SUBJECTIVE: Patient remains on the surgical floor. He is postop day 7 status post exploratory laparotomy and repair of incarcerated ventral incisional hernia. Patient is also undergoing treatment for postop ileus. He was treated for the previous 24 hours with neostigmine which was successful. At the time of this dictation, the patient had two bowel movements. He reports his pain is controlled. He continues to pass gas and he is tolerating liquid diet. In light of his return of bowel function, the patient's diet has been advanced to regular. He denies nausea or vomiting. OBJECTIVE: VITAL SIGNS: Temperature is 98.7, heart rate 84, blood pressure 157/98, respirations 20, and oxygen saturation 98% on room air. GENERAL: The patient is resting comfortably in bed. He does appear more comfortable this morning than previous days. He is awake, alert, conversant, and appropriate. NEUROLOGIC: Chanell Coma Scale is 15. HEENT: Unremarkable. LUNGS: Clear to auscultation bilaterally. HEART: Regular rate and rhythm. ABDOMEN: Soft, nondistended. His midline incision is clean, dry, and intact. Patient has no peritoneal signs. His tympanitic sounds to percussions have resolved. EXTREMITIES: Neurovascularly intact x4. LABORATORY FINDINGS: There are no labs or radiographs to review this morning. ASSESSMENT/PLAN: 1. Status post laparotomy and repair of incarcerated ventral incisional hernia, postop day 7. 2. Adynamic ileus, resolved. PLAN: Plan will be to discontinue neostigmine. Still encouraged physical and occupational therapy, ambulation. We will begin a regular diet. If patient does well overnight, he will be able to be discharged back to his facility. I was informed that he actually has to go to a different facility to be quarantined for 14 days. Patient was evaluated this morning with Dr. Sanchez. Job ID: [id number]
[2020-08-09] MEDS: traMADol HCl 50 MG TAB PO PRN (20:24)
[2020-08-09] MEDS: Venlafaxine HCl XR 150 MG CAP PO SCH (20:25)
[2020-08-10] MEDS: Acetaminophen 500 MG TAB PO SCH ×3 (00:28→12:19)
[2020-08-10] MEDS: Sodium Chloride 0.9% 1,000 ML IV SCH ×2 (01:37→09:43)
[2020-08-10] MEDS: Ibuprofen 600 MG TAB PO SCH ×2 (06:15→14:16)
[2020-08-10] MEDS: Cyclobenzaprine 10 MG TAB PO PRN (06:25)
[2020-08-10] MEDS: Famotidine 20 MG TAB PO SCH (08:28)
[2020-08-10] MEDS: Lisinopril 20 MG TAB PO SCH (08:28)
[2020-08-10] MEDS: Enoxaparin Sodium 40 MG/0.4 ML SYRINGE SC SCH (08:29)
[2020-08-10] MEDS: Senokot 8.6 MG TAB PO SCH (08:29)
[2020-08-10] MEDS: Polyethylene Glycol 3350 17 GM Packet PO SCH (08:29)
[2020-08-10 12:33] VITALS: BP 156/95; TEMP 98.4
--- NOTE | 2020-08-10 19:24 | DIS ---
DATE OF ADMISSION: 08/02/2020 DATE OF DISCHARGE: 08/10/2020 ADMISSION DIAGNOSES: 1. Acute incarcerated ventral hernia. 2. Acute small-bowel obstruction secondary to #1. 3. History of essential hypertension. 4. History of chronic depression. CONSULTATIONS: None. PROCEDURES: Exploratory laparotomy and repair of ventral incisional hernia. SUMMARY: The patient is a 50-year-old man who is an inmate of the correctional facility nearby here, who reports sudden onset of periumbilical pain. It is associated with a nonreducible bulge and mass to his midline abdomen. The patient was brought to the emergency department where he underwent evaluation and examination, was noted to have the above diagnoses. He was taken urgently to the operating room where he underwent his above procedure. The patient did have a postop ileus that required NG tube suction for 2 days. The patient was able to ambulate and eventually began having return of bowel function. The patient did require 3 doses of neostigmine to help with this. At the time of discharge, the patient had no nausea, was tolerating a regular diet, was passing gas, and had 2 bowel movements. His incision was clean, dry, and intact. He did have a small lateral hematoma that was noted. The patient was cleared for discharge and we were informed that the patient will go back to [facility] until he is quarantine for 2 weeks due to COVID precautions. The patient was COVID negative at our facility. The patient had dissolvable sutures placed. He was given instructions at discharge to his guards that included wound care and no lifting greater than 15 pounds for 4 weeks. The guards were also given return information should the long-term bring him to our facility. Job ID: [id number]
== END 2020-08-10 15:45 | disposition home or self-care (01) | DRG 354 ==
LOC: ERS 11:20 → EEVIPCON 11:20 → SURG A 13:59
PROVIDERS: ADMIT Surgery; ATTEND Surgery
PROC: 0WQF0ZZ Repair Abdominal Wall, Open Approach (ICD-10-PCS; principal; 2020-08-02)
DX: K43.6 Other and unspecified ventral hernia with obstruction, without gangrene (principal); K56.0 Paralytic ileus; I10 Essential (primary) hypertension; F32.9 Major depressive disorder, single episode, unspecified; Z20.828 Contact with and (suspected) exposure to other viral communicable diseases; Z23 Encounter for immunization; Z87.11 Personal history of peptic ulcer disease; Z79.899 Other long term (current) drug therapy; Z90.49 Acquired absence of other specified parts of digestive tract
CPT/HCPCS: 36415; 74018; 74177; 80048; 80053; 83605; 83690; 83735; 84100; 85025; 85610; 85730; 86850; 86900; 86901; 88302; 96361; 96365; 96375; J1650; J2175; J2270; J2405; J2543; J2704; J2710; J3010; J3475; J7050; Q9967; U0002